=== PATIENT | female | born 1995 | race Caucasian/White ===

== ENCOUNTER 2018-06-11 15:50 | Emergency (ER) | payer OTHER, MEDICAID ==
[~2018-06-11] VITALS: Ht 154.9 cm; Wt 77.1 kg
[~2018-06-11 15:50] MED LIST: ACETAMINOPHEN-1 EAC1 PO; ADDERALL; ADDERALL 10 MG10 MG PO; ADDERALL 20 MG20 M1; ADDERALL XR 2020 MG PO; ALBUTEROL2.5 MG/0.1; AMPHETAMINE SAL10 MG PO; ARTHRITIS PAIN650 M2 PO; AZITHROMYCIN 2250 MG PO; BACTRIM DS TAB1 EACH PO; CIPROFLOXACIN500 M1 PO; COLACE100 MG PO; CORRECTIVE LAXAT5 M1 PO; ENDOCET 5-3251 EACH PO; FLAGYL500 MG PO; FLEXERIL PO; GLYCOLAX POWDER17 G1 PO; HYDROCODON-ACE1 EAC7 PO; LEVAQUIN 250 M250 MG PO; NORCO 5-325 TA1 EACH PO; ORTHO EVRA PAT1 EACH; PERCOCET 7.5-31 EACH PO; PREDNISONE 20 M20 M1 PO; PYRIDIUM200 MG PO; SENNA PO; VALIUM5 MG; VENTOLIN HFA 1818 GM INH; XANAX 0.25 MG0.25 MG PO
[2018-06-11 16:05] VITALS: BP 156/102
[2018-06-11] MEDS ORDERED: KEFLEX500 M1 PO (16:20)
== END 2018-06-11 16:29 | disposition home or self-care (01) ==
LOC: M.ERS 15:50
DX: S91.012A Laceration without foreign body, left ankle, initial encounter (principal); F98.8 Other specified behavioral and emotional disorders with onset usually occurring in childhood and adolescence; F17.210 Nicotine dependence, cigarettes, uncomplicated; W26.8XXA Contact with other sharp object(s), not elsewhere classified, initial encounter; Y93.89 Activity, other specified; Y92.89 Other specified places as the place of occurrence of the external cause; Y99.8 Other external cause status

== ENCOUNTER 2018-07-27 19:33 | Emergency (ER) | payer OTHER, MEDICAID ==
[~2018-07-27] VITALS: Ht 157.5 cm; Wt 77.1 kg
[~2018-07-27 19:33] MED LIST changes: +KEFLEX500 M1 PO
[2018-07-27 20:22] LABS: ABSOLUTE BASOPHILS 0.1 thou/uL (0.0-0.2); ABSOLUTE EOSINOPHILS 0.1 thou/uL (0.0-0.7); ABSOLUTE LYMPHOCYTES 2.5 thou/uL (0.8-5.3); ABSOLUTE MONOCYTES 0.5 thou/uL (0.0-1.2); ABSOLUTE NEUTROPHILS 5.1 thou/uL (1.6-8.1); BASOPHILS 1.6 %; HEMATOCRIT 40.8 % (37.0-47.0); HEMOGLOBIN 13.8 gm/dL (12.0-15.0); LYMPHOCYTES 29.9 %; MCH 32.3 pg (26.0-34.0); MCHC 33.9 g/dL (28.0-37.0); MCV 95.3 fL (80.0-100.0); MONOCYTES 6.1 %; MPV 8.2 fl. (7.2-11.1); NUCLEATED RBCS 0 /100WBC; PLATELET COUNT* 243 thou/uL (150-400); POLYS 61.4 %; RBC 4.28 mil/uL (4.20-5.00); RDW-CV 13.5 % (10.5-14.5); WBC 8.3 thou/uL (4.0-11.0)
[2018-07-27 20:27] LABS: CALCIUM 8.8 mg/dL (8.5-10.1); CREATININE 0.9 mg/dL (0.6-1.3); POTASSIUM 3.9 mmol/L (3.5-5.1)
[2018-07-27 20:31] LABS: ALBUMIN 3.4 g/dL (3.4-5.0); TOTAL BILIRUBIN 0.4 mg/dL (<0.1-1.0); TOTAL PROTEIN 7.5 g/dL (6.4-8.2)
[2018-07-27] MEDS ORDERED: IBUPROFEN 600600 M1 PO (20:31)
[2018-07-27 20:36] LABS: URINE BILIRUBIN NEGATIVE (Negative); URINE BLOOD NEGATIVE (Negative); URINE CLARITY CLEAR; URINE COLOR YELLOW; URINE GLUCOSE-RANDOM NEGATIVE (Negative); URINE KETONES 1+ (Negative); URINE LEUKOCYTES-REFLEX NEGATIVE (Negative); URINE NITRITE-REFLEX NEGATIVE (Negative); URINE PROTEIN NEGATIVE (Negative); URINE SPECIFIC GRAVITY >= 1.030 (1.005-1.030); URINE UROBILINOGEN 0.2 E.U./dl (0.2-1.0)
[2018-07-27 20:52] VITALS: BP 140/98
== END 2018-07-27 20:45 | disposition home or self-care (01) ==
LOC: M.ERS 19:33
PROVIDERS: Physician Assistant
DX: M79.652 Pain in left thigh (principal); F17.210 Nicotine dependence, cigarettes, uncomplicated